=== PATIENT | male | born 1955 | race Caucasian/White ===

== ENCOUNTER 2022-02-13 15:18 | Inpatient (IN) ==
[2022-02-13 15:41] LABS: POC Calcium, Ionized 1.14 (1.16-1.32); POC Creatinine 1.1 (0.6-1.2); POC Potassium 3.9 (3.3-5.1)
[2022-02-13 16:06] LABS: Basophils # (Auto) 0.04 K/mcL (0.00-0.30); Basophils % (Auto) 0.3 % (0.0-2.0); Eosinophils # (Auto) 0.08 K/mcL (0.00-0.70); Eosinophils % (Auto) 0.6 % (0.0-7.0); Hematocrit 40.4 % (40.1-51.0); Hemoglobin 13.6 g/dL (13.7-17.5); Lymphocytes # (Auto) 0.64 K/mcL (1.50-4.80); Mean Cell Volume 90.8 fL (80.0-100.0); Mean Corpuscular HGB Conc 33.7 g/dL (31.0-36.0); Mean Platelet Volume 10.3 fL (8.8-12.5); Monocytes # (Auto) 1.01 K/mcL (0.10-0.90); Neutrophils % (Auto) 85.7 % (38.0-78.0); Platelet Count 168 K/mcL (140-440); RBC 4.45 M/mcL (4.63-6.08); Red Cell Distribution Width 12.9 % (11.5-14.5); WBC 12.7 K/mcL (4.5-11.0)
[2022-02-13] MEDS ORDERED: 0.9 % SODIUM CHLORIDE 1,000 ML IV ONE (16:22)
--- NOTE | 2022-02-13 16:24 | Emergency Department Note ---
HPI General Chief complaint: Weakness Stated complaint: weakness, frequent falls, left sided pain Time Seen by Provider: 02/13/22 17:01 Source: patient and EMS Mode of arrival: wheelchair Limitations: no limitations History of Present Illness HPI Narrative: Narrative: Patient is a 66-year-old male with no known medical history who presents to the emergency department due to fall and weakness. Patient reports that he fell on Sunday on his left side, and since then has had left-sided chest pain and left hip pain. He states that he is also had weakness since that time. He states that the weakness started after the fall, and not before the fall. He states that this morning he fell again, and was on the ground from 6:30 AM to 1 PM. He endorses continued weakness since that time. He denies hitting his headache, denies loss of consciousness, and denies pain in any other location aside from left side of chest and left hip. He denies any other concerns at this time. Related Data Home Medications Medication Instructions Recorded Confirmed aspirin 81 mg chewable tablet 81 mg PO QDAY 02/13/22 02/13/22 (Aspirin Childrens) atorvastatin 20 mg tablet 20 mg PO QDAY 02/13/22 02/13/22 diltiazem HCl 240 mg capsule,24 240 mg PO QAM 02/13/22 02/13/22 hr,extended release ferrous sulfate 325 mg (65 mg 325 mg PO QAM 02/13/22 02/13/22 iron) tablet furosemide 20 mg tablet 20 mg PO QAM 02/13/22 02/13/22 lisinopril 40 mg tablet 40 mg PO QDAY 02/13/22 02/13/22 metformin 500 mg tablet 500 mg PO BID 02/13/22 02/13/22 Previous Rx's Medication Instructions Recorded acetaminophen 325 mg tablet 650 mg PO Q6HP PRN Per Pain 02/16/22 Protocol/Fever > 101 #30 tabs potassium chloride 8 mEq 8 meq PO QDAY #30 caps 02/16/22 capsule,extended release sennosides 8.6 mg tablet (Senna 8.6 mg PO BID PRN constipation 30 02/16/22 Lax) days #60 tabs Allergies Allergy/AdvReac Type Severity Reaction Status Date / Time No Known Drug Allergies Allergy Verified 02/13/22 15:21 Review of Systems ROS ROS Narrative: Narrative: Constitutional: Reports weakness (Generalized); Denies fever Eyes: Denies eye pain or vision change ENT ED: Denies throat pain or rhinorrhea Cardiovascular: Reports chest pain; Denies dyspnea on exertion, orthopnea or edema Respiratory: Denies shortness of breath or cough Gastrointestinal: Denies abdominal pain, nausea, vomiting, diarrhea, constipation, hematochezia or melena Genitourinary: Denies dysuria or frequency Musculoskeletal: Reports joint pain (Left hip); Denies back pain or myalgia Integumentary: Denies rash or lesions Neurological: Reports weakness (Generalized); Denies headache, numbness, confusion, abnormal gait or dizziness Endocrine: Denies fatigue or polyuria PFSH Narrative Patient History Narrative: Narrative: Social History Smoking Status: Never smoker Exam Narrative Narrative: Narrative: General Limitations: no limitations General appearance: Present alert and in no apparent distress; Absent anxious, a ppears intoxicated or sleepy Head Head: Present atraumatic and normocephalic Eye Eye: Present EOMI; Absent scleral icterus or nystagmus ENT ENT: Present mucous membranes moist; Absent nasal congestion Neck Neck: Present full ROM; Absent tenderness Chest Chest: Present normal inspection, symmetric chest wall rise and tenderness (Left anterior ribs) Respiratory Respiratory: Present normal lung sounds bilaterally; Absent respiratory distress or accessory muscle use Cardiovascular Cardiovascular: Present regular rate, normal rhythm and normal heart sounds Adbominal Abdominal: Present soft and normal bowel sounds; Absent distention or tenderness Extremities Extremities: Present normal inspection, full ROM, tenderness (Left hip) and normal capillary refill Back Back: Present normal inspection and full ROM; Absent tenderness Neurological Neurological: Present alert and oriented X3 Psychiatric Psychiatric: Present normal affect and normal mood Skin Skin: Present warm (WNL), dry and normal color Course Vital Signs Vital signs: Vital Signs Temperature 98.4 F 02/13/22 15:18 Pulse Rate 81 02/13/22 15:18 Respiratory Rate 22 02/13/22 15:18 Blood Pressure 183/75 02/13/22 15:18 Pulse Oximetry (%) 97 02/13/22 15:18 Oxygen Delivery Method 02/13/22 15:18 Temperature 98.4 F 02/16/22 08:00 Pulse Rate 80 02/16/22 14:18 Respiratory Rate 18 02/16/22 08:45 Blood Pressure 182/63 02/16/22 14:18 Pulse Oximetry (%) 96 02/16/22 14:18 Oxygen Delivery Method 02/16/22 14:18 MDM MDM Narrative Medical decision making narrative: Narrative: Patient is a 66-year-old male who presents to the emergency department due to generalized weakness and chest pain. Differential diagnoses include rib fracture, rib contusion, soft tissue injury, hip fracture, electrolyte abnormality, rhabdomyolysis, and dehydration. Patient's labs are suggestive of possible dehydration. His labs otherwise are reassuring. COVID and influenza swab is negative. CT of the chest demonstrates left fourth through ninth rib fractures. Urinalysis is pending. I have spoken to Dr. Medina about patient who has agreed to see and evaluate patient for admission. Lab Data Result diagrams: 02/14/22 05:40 02/15/22 05:55 Labs: Lab Results 02/13/22 02/13/22 02/13/22 Range/Units 15:30 15:30 15:30 WBC 12.7 H (4.5-11.0) K/mcL RBC 4.45 L (4.63-6.08) M/mcL Hgb 13.6 L (13.7-17.5) g/dL Hct 40.4 (40.1-51.0) % POC Hct (41-55) MCV 90.8 (80.0-100.0) fL MCH 30.6 (26.0-34.0) pg MCHC 33.7 (31.0-36.0) g/dL RDW 12.9 (11.5-14.5) % Plt Count 168 (140-440) K/mcL MPV 10.3 (8.8-12.5) fL Immature Gran % (Auto) 0.4 (0.0-0.5) % Neut % (Auto) 85.7 H (38.0-78.0) % Lymph % (Auto) 5.0 L (15.5-49.0) % [place] % (Auto) 8.0 (1.0-12.0) % Eos % (Auto) 0.6 (0.0-7.0) % Baso % (Auto) 0.3 (0.0-2.0) % Lymph # (Auto) 0.64 L (1.50-4.80) K/mcL [place] # (Auto) 1.01 H (0.10-0.90) K/mcL Eos # (Auto) 0.08 (0.00-0.70) K/mcL Baso # (Auto) 0.04 (0.00-0.30) K/mcL Immature Gran # 0.05 (0.00-0.05) K/mcl Absolute Neutrophils 10.87 H (1.80-8.00) K/mcL POC Sodium (133-145) Sodium (133-145) mmol/L POC Potassium (3.3-5.1) Potassium (3.3-5.1) mmol/L POC Chloride (96-108) Chloride (96-108) mmol/L Carbon Dioxide (22-30) mmol/L POC Total CO2 (22-30) Anion Gap (8.0-16.0) POC BUN (6-20) BUN (8-23) mg/dL Creatinine (0.7-1.2) mg/dL POC Creatinine (0.6-1.2) GFR Calculation Glucose (70-105) mg/dL POC Glucose (70-105) Uric Acid (2.5-8.0) mg/dL Calcium (8.6-10.4) mg/dL POC WB Ioniz Calcium (1.16-1.32) Phosphorus (2.5-4.5) mg/dL Magnesium (1.6-2.5) mg/dL Total Bilirubin 1.0 (0.1-1.0) mg/dL Direct Bilirubin 0.3 H (<0.3) mg/dL GGT (8-61) U/L AST 37 (<40) U/L ALT 24 (<40) U/L Alkaline Phosphatase 82 (39-117) U/L Lactate Dehydrogenase (135-225) U/L Total Creatine Kinase 880 H (24-195) U/L Total Protein 7.1 (5.9-8.4) gm/dL Albumin 4.1 (3.2-5.2) gm/dL Globulin 3.0 (2.2-3.7) gm/dL Albumin/Globulin Ratio (1.0-2.3) Triglycerides (<150) mg/dL TSH (0.27-5.01) uIU/mL Urine Color Urine Appearance (Clear) Urine pH (5.0-9.0) Ur Specific [place] (1.000-1.035) Urine Protein (Negative) mg/dL Urine Glucose (UA) (Negative) mg/dL Urine Ketones (Negative) mg/dL Urine Occult Blood (Negative) afshin/mcL Urine Nitrate (Negative) Urine Bilirubin (Negative) mg/dL Urine Urobilinogen mg/dL Ur Leukocyte Esterase (Negative) /uL Urine RBC (0-3) /hpf Urine WBC (0-4) /hpf Ur Squamous Epith Cells (0-4) /hpf Urine Bacteria (0) /hpf Urine Mucus (None) /hpf Ur Culture Indicated? 02/13/22 02/13/22 02/13/22 Range/Units 15:37 17:45 22:00 WBC (4.5-11.0) K/mcL RBC (4.63-6.08) M/mcL Hgb (13.7-17.5) g/dL Hct (40.1-51.0) % POC Hct 41.0 (41-55) MCV (80.0-100.0) fL MCH (26.0-34.0) pg MCHC (31.0-36.0) g/dL RDW (11.5-14.5) % Plt Count (140-440) K/mcL MPV (8.8-12.5) fL Immature Gran % (Auto) (0.0-0.5) % Neut % (Auto) (38.0-78.0) % Lymph % (Auto) (15.5-49.0) % [place] % (Auto) (1.0-12.0) % Eos % (Auto) (0.0-7.0) % Baso % (Auto) (0.0-2.0) % Lymph # (Auto) (1.50-4.80) K/mcL [place] # (Auto) (0.10-0.90) K/mcL Eos # (Auto) (0.00-0.70) K/mcL Baso # (Auto) (0.00-0.30) K/mcL Immature Gran # (0.00-0.05) K/mcl Absolute Neutrophils (1.80-8.00) K/mcL POC Sodium 139 (133-145) Sodium (133-145) mmol/L POC Potassium 3.9 (3.3-5.1) Potassium (3.3-5.1) mmol/L POC Chloride 106 (96-108) Chloride (96-108) mmol/L Carbon Dioxide (22-30) mmol/L POC Total CO2 22.0 (22-30) Anion Gap (8.0-16.0) POC BUN 33 H (6-20) BUN (8-23) mg/dL Creatinine (0.7-1.2) mg/dL POC Creatinine 1.1 (0.6-1.2) GFR Calculation Glucose (70-105) mg/dL POC Glucose 142 H (70-105) Uric Acid (2.5-8.0) mg/dL Calcium (8.6-10.4) mg/dL POC WB Ioniz Calcium 1.14 L (1.16-1.32) Phosphorus (2.5-4.5) mg/dL Magnesium (1.6-2.5) mg/dL Total Bilirubin (0.1-1.0) mg/dL Direct Bilirubin (<0.3) mg/dL GGT (8-61) U/L AST (<40) U/L ALT (<40) U/L Alkaline Phosphatase (39-117) U/L Lactate Dehydrogenase (135-225) U/L Total Creatine Kinase (24-195) U/L Total Protein (5.9-8.4) gm/dL Albumin (3.2-5.2) gm/dL Globulin (2.2-3.7) gm/dL Albumin/Globulin Ratio (1.0-2.3) Triglycerides (<150) mg/dL TSH 1.93 (0.27-5.01) uIU/mL Urine Color Lt. yellow Urine Appearance Clear (Clear) Urine pH 6.0 (5.0-9.0) Ur Specific [place] 1.025 (1.000-1.035) Urine Protein 100 A (Negative) mg/dL Urine Glucose (UA) Negative (Negative) mg/dL Urine Ketones 40 A (Negative) mg/dL Urine Occult Blood Moderate A (Negative) afshin/mcL Urine Nitrate Negative (Negative) Urine Bilirubin Negative (Negative) mg/dL Urine Urobilinogen Normal mg/dL Ur Leukocyte Esterase Negative (Negative) /uL Urine RBC 3 (0-3) /hpf Urine WBC 1 (0-4) /hpf Ur Squamous Epith Cells 0 (0-4) /hpf Urine Bacteria None (0) /hpf Urine Mucus Few A (None) /hpf Ur Culture Indicated? No 02/14/22 02/14/22 02/14/22 Range/Units 05:40 05:40 05:40 WBC 11.0 (4.5-11.0) K/mcL RBC 3.93 L (4.63-6.08) M/mcL Hgb 12.2 L (13.7-17.5) g/dL Hct 36.3 L (40.1-51.0) % POC Hct (41-55) MCV 92.4 (80.0-100.0) fL MCH 31.0 (26.0-34.0) pg MCHC 33.6 (31.0-36.0) g/dL RDW 13.1 (11.5-14.5) % Plt Count 167 (140-440) K/mcL MPV 10.7 (8.8-12.5) fL Immature Gran % (Auto) 0.5 (0.0-0.5) % Neut % (Auto) 71.1 (38.0-78.0) % Lymph % (Auto) 9.9 L (15.5-49.0) % [place] % (Auto) 11.4 (1.0-12.0) % Eos % (Auto) 6.6 (0.0-7.0) % Baso % (Auto) 0.5 (0.0-2.0) % Lymph # (Auto) 1.09 L (1.50-4.80) K/mcL [place] # (Auto) 1.26 H (0.10-0.90) K/mcL Eos # (Auto) 0.73 H (0.00-0.70) K/mcL Baso # (Auto) 0.06 (0.00-0.30) K/mcL Immature Gran # 0.06 H (0.00-0.05) K/mcl Absolute Neutrophils 7.83 (1.80-8.00) K/mcL POC Sodium (133-145) Sodium 138 (133-145) mmol/L POC Potassium (3.3-5.1) Potassium 3.6 (3.3-5.1) mmol/L POC Chloride (96-108) Chloride 107 (96-108) mmol/L Carbon Dioxide 22 (22-30) mmol/L POC Total CO2 (22-30) Anion Gap 9.0 (8.0-16.0) POC BUN (6-20) BUN 29 H (8-23) mg/dL Creatinine 0.9 (0.7-1.2) mg/dL POC Creatinine (0.6-1.2) GFR Calculation 87 Glucose 117 H (70-105) mg/dL POC Glucose (70-105) Uric Acid 8.8 H (2.5-8.0) mg/dL Calcium 8.2 L (8.6-10.4) mg/dL POC WB Ioniz Calcium (1.16-1.32) Phosphorus 2.7 (2.5-4.5) mg/dL Magnesium 1.9 (1.6-2.5) mg/dL Total Bilirubin 0.6 (0.1-1.0) mg/dL Direct Bilirubin 0.2 (<0.3) mg/dL GGT 17 (8-61) U/L AST 23 (<40) U/L ALT 19 (<40) U/L Alkaline Phosphatase 64 (39-117) U/L Lactate Dehydrogenase 290 H (135-225) U/L Total Creatine Kinase 434 H (24-195) U/L Total Protein 5.8 L (5.9-8.4) gm/dL Albumin 3.2 (3.2-5.2) gm/dL Globulin 2.6 (2.2-3.7) gm/dL Albumin/Globulin Ratio 1.2 (1.0-2.3) Triglycerides 88 (<150) mg/dL TSH (0.27-5.01) uIU/mL Urine Color Urine Appearance (Clear) Urine pH (5.0-9.0) Ur Specific [place] (1.000-1.035) Urine Protein (Negative) mg/dL Urine Glucose (UA) (Negative) mg/dL Urine Ketones (Negative) mg/dL Urine Occult Blood (Negative) afshni/mcL Urine Nitrate (Negative) Urine Bilirubin (Negative) mg/dL Urine Urobilinogen mg/dL Ur Leukocyte Esterase (Negative) /uL Urine RBC (0-3) /hpf Urine WBC (0-4) /hpf Ur Squamous Epith Cells (0-4) /hpf Urine Bacteria (0) /hpf Urine Mucus (None) /hpf Ur Culture Indicated? 02/15/22 Range/Units 05:55 WBC (4.5-11.0) K/mcL RBC (4.63-6.08) M/mcL Hgb (13.7-17.5) g/dL Hct (40.1-51.0) % POC Hct (41-55) MCV (80.0-100.0) fL MCH (26.0-34.0) pg MCHC (31.0-36.0) g/dL RDW (11.5-14.5) % Plt Count (140-440) K/mcL MPV (8.8-12.5) fL Immature Gran % (Auto) (0.0-0.5) % Neut % (Auto) (38.0-78.0) % Lymph % (Auto) (15.5-49.0) % [place] % (Auto) (1.0-12.0) % Eos % (Auto) (0.0-7.0) % Baso % (Auto) (0.0-2.0) % Lymph # (Auto) (1.50-4.80) K/mcL [place] # (Auto) (0.10-0.90) K/mcL Eos # (Auto) (0.00-0.70) K/mcL Baso # (Auto) (0.00-0.30) K/mcL Immature Gran # (0.00-0.05) K/mcl Absolute Neutrophils (1.80-8.00) K/mcL POC Sodium (133-145) Sodium 139 (133-145) mmol/L POC Potassium (3.3-5.1) Potassium 3.9 (3.3-5.1) mmol/L POC Chloride (96-108) Chloride 106 (96-108) mmol/L Carbon Dioxide 21 L (22-30) mmol/L POC Total CO2 (22-30) Anion Gap 12.0 (8.0-16.0) POC BUN (6-20) BUN 29 H (8-23) mg/dL Creatinine 1.0 (0.7-1.2) mg/dL POC Creatinine (0.6-1.2) GFR Calculation 77 Glucose 149 H (70-105) mg/dL POC Glucose (70-105) Uric Acid (2.5-8.0) mg/dL Calcium 8.2 L (8.6-10.4) mg/dL POC WB Ioniz Calcium (1.16-1.32) Phosphorus (2.5-4.5) mg/dL Magnesium (1.6-2.5) mg/dL Total Bilirubin (0.1-1.0) mg/dL Direct Bilirubin (<0.3) mg/dL GGT (8-61) U/L AST (<40) U/L ALT (<40) U/L Alkaline Phosphatase (39-117) U/L Lactate Dehydrogenase (135-225) U/L Total Creatine Kinase (24-195) U/L Total Protein (5.9-8.4) gm/dL Albumin (3.2-5.2) gm/dL Globulin (2.2-3.7) gm/dL Albumin/Globulin Ratio (1.0-2.3) Triglycerides (<150) mg/dL TSH (0.27-5.01) uIU/mL Urine Color Urine Appearance (Clear) Urine pH (5.0-9.0) Ur Specific [place] (1.000-1.035) Urine Protein (Negative) mg/dL Urine Glucose (UA) (Negative) mg/dL Urine Ketones (Negative) mg/dL Urine Occult Blood (Negative) afshin/mcL Urine Nitrate (Negative) Urine Bilirubin (Negative) mg/dL Urine Urobilinogen mg/dL Ur Leukocyte Esterase (Negative) /uL Urine RBC (0-3) /hpf Urine WBC (0-4) /hpf Ur Squamous Epith Cells (0-4) /hpf Urine Bacteria (0) /hpf Urine Mucus (None) /hpf Ur Culture Indicated? ED POC Tests ED POC Tests: AJITH - Influenza A Negative AJITH - Influenza B Negative AJITH - SARS Antigen Negative Discharge Plan Patient/Caregiver Discharge Instructions Pt seen by PATTERN ASSEMBLER/PA only: No Activity: as per physical therapy Patient Disposition: Xfer As Inpt ([facility]) Condition: Good Prescriptions: New sennosides [Senna Lax] 8.6 mg Tablet 8.6 mg PO BID PRN (Reason: constipation) 30 Days Qty: 60 0RF acetaminophen 325 mg Tablet 650 mg PO Q6HP PRN (Reason: Per Pain Protocol/Fever > 101) Qty: 30 0RF potassium chloride 8 mEq capsule, extended release 8 meq PO QDAY Qty: 30 0RF Rx Instructions: Can be substituted with any generic KCl. Thank Continued metformin 500 mg Tablet 500 mg PO BID atorvastatin 20 mg Tablet 20 mg PO QDAY diltiazem HCl 240 mg Capsule,Extended Release 24 Hr 240 mg PO QAM ferrous sulfate 325 mg (65 mg iron) Tablet 325 mg PO QAM aspirin [Aspirin Childrens] 81 mg Tablet,Chewable 81 mg PO QDAY furosemide 20 mg Tablet 20 mg PO QAM lisinopril 40 mg Tablet 40 mg PO QDAY Other Ambulatory Orders: OT Discharge Order (Routine) Location: None Selected Ordered By: Erich aClix Physical Therapy at Discharge - General (Routine) Location: None Selected Ordered By: Erich Calix Discharge Date/Time: 02/13/22 21:10 Discharge Location: [facility]
[2022-02-13 17:05] LABS: Creatine Kinase 880 U/L (24-195)
--- NOTE | 2022-02-13 17:25 | XRay Report ---
CLINICAL INFORMATION: Trauma COMPARISON: None. FINDINGS: Sacroiliac and hip joints are normal in width and alignment without arthritic change. There is no fracture or osseous abnormality. There are multiple bowel loops in the medial soft tissues left upper thigh. Patient likely has a very large femoral hernia. IMPRESSION: No fracture. Suspect very left large femoral hernia. Interpreted and Authenticated by: Zion Esposito 02/19/22
--- NOTE | 2022-02-13 17:39 | Cat Scan Report ---
CLINICAL INFORMATION: Patient fell now with left-sided chest pain COMPARISON: None TECHNIQUE: 0.625 mm axial slices were obtained from the lung apices through the bases without intravenous contrast. 2.5 mm Sagittal, coronal and axial reformatted images were processed and reviewed at bone, lung and soft tissue windows. 7 mm axial MIP images were also reconstructed to optimize pulmonary nodule detection.The exam was performed using radiation dose optimization techniques including, but not limited to, automated exposure control, adjustment of the mA and/or kV according to patient size and use of iterative reconstruction technique. FINDINGS: Pulmonary parenchymal windows show atelectasis of the medial basilar segment left lower lobe with scattered atelectasis or fibrosis in the inferior right middle lobe, lingula and peripheral right lower lobe. Small left pleural effusion noted. No evidence of pneumothorax. Mediastinal windows show the heart is mildly enlarged with scattered calcific plaque in the coronary arteries. The noncontrast pulmonary arteries and thoracic aorta is normal diameter. No adenopathy or hemorrhage in the mediastinum, hilar or axillary region. Esophagus is normal. Acute mildly displaced fractures the lateral left fourth and fifth ribs with nondisplaced acute fractures lateral left sixth seventh eighth and ninth ribs. IMPRESSION: 1. Acute lateral left fourth through ninth rib fractures. 2. Small left pleural effusion 3. Segmental atelectasis medial basilar segment left lower lobe. Interpreted and Authenticated by: Zion Esposito 02/13/22
[2022-02-13 18:58] LABS: Appearance,Urine CLEAR (Clear); Bilirubin,Urine Negative (Negative); Color,Urine LT. YELLOW; Culture Indicated,Urine No; Glucose,Urine (UA) NEGATIVE (Negative); Ketones,Urine 40 mg/dL (Negative); Leukocyte Esterase,Urine NEGATIVE /uL (Negative); Mucus,Urine FEW /hpf; Nitrate,Urine NEGATIVE (Negative); Protein,Urine 100 mg/dL (Negative); Specific Gravity,Urine 1.025 (1.000-1.035); Urine Blood MODERATE ery/mcL (Negative); Urine RBC 3 /hpf (0-3); Urine Squamous Epithelial Cell 0 /hpf (0-4); Urine WBC 1 /hpf (0-4); Urobilinogen,Urine Normal
[2022-02-13] MEDS ORDERED: morphine 4 MG/ML VIAL IV ONE (19:02)
[2022-02-13] MEDS ORDERED: KETOROLAC 30 MG/ML VIAL IV ONE (19:02)
--- NOTE | 2022-02-13 20:02 | Internal Med History&Physical ---
HPI History of Present Illness Patient information: Note initiated : 02/13/22 at 7:53 pm Service Date, if different from initiated Date: [] Patient: Parish Aaron a 66 y/o M admitted on for weakness, frequent falls, left sided pain. Chief Complaint: [] History of present illness: Mr. Aaron is a 66 year old M Presents the ED with his friend for severe weakness. He also has left rib pain although not severe. Per the history from the patient and his friend: Patient tripped on tile in his home on Sunday falling onto his left side. And has been a bit weaker since then has not taken some of his medication to sound like. He was in his chair using urinal when he slipped out because he said its not a sturdy chair. He was too weak to get himself up and his friend who came over cannot get him up as well so they called EMS and took 6 guys to get him up. Per the friend he has a history of stroke and the patient has residual right leg weakness and also has some memory deficit. Also has a history of diabetes type 2 and hypertension blood pressure is elevated here in has not been on his medications for least a day. He had mild leukocytosis and elevated CPK 880. Volume depletion with a BUN of 33. Urinalysis with ketones. CT of the chest showed mildly displaced rib fractures on the left fourth and fifth and a nondisplaced sixth seven eight ninth. Patient lives at home alone. Sometimes uses a cane. Patient has some shortness of breath but denies cough no nausea vomiting. Review of Systems: Pertinent positives above. Denies headache/fever/chills/nausea/vomiting/abdominal pain/diarrhea. Remaining 10 point review of system reviewed negative PFSH PFSH Social History smoking status: Never smoker MEDS/ALLERGIES Home Medications and Allergies Allergies Allergy/AdvReac Type Severity Reaction Status Date / Time No Known Drug Allergies Allergy Verified 02/13/22 15:21 EXAM Constitutional Vitals: Temp Pulse Resp BP Pulse Ox O2 Del Method 98.4 F 82 22 181/86 97 02/13/22 15:18 02/13/22 19:47 02/13/22 15:18 02/13/22 19:47 02/13/22 19:47 02/13/22 15:18 Exam: General: Alert, Awake, No acute Distress, obese Eyes/N/T: EOMI, PERRL, dry MM Head/Neck: neck supple, normocephalic atraumatic CV: RRR, 1/6SM, normal s1/s2 Pulm: Clear b/l, no wheezing/rhonchi/rales, tender left side ribs Abd: soft, nontender, +BS x4 Ext: no clubbing/cyanosis/edema Neuro: Alert, no focal deficits, moves all extremities, CN 2-12 grossly intact, sensations intact b/l upper/lower Skin: warm/dry DATA Data Completed and Pending Labs: Labs from last 24 hours 02/13/22 02/13/22 02/13/22 17:45 15:37 15:30 WBC RBC Hgb Hct POC Hct 41.0 MCV MCH MCHC RDW Plt Count MPV Immature Gran % (Auto) Neut % (Auto) Lymph % (Auto) [place] % (Auto) Eos % (Auto) Baso % (Auto) Lymph # (Auto) [place] # (Auto) Eos # (Auto) Baso # (Auto) Immature Gran # Absolute Neutrophils POC Sodium 139 POC Potassium 3.9 POC Chloride 106 POC Total CO2 22.0 POC BUN 33 H POC Creatinine 1.1 POC Glucose 142 H POC WB Ioniz Calcium 1.14 L Total Bilirubin Pending Direct Bilirubin Pending AST Pending ALT Pending Alkaline Phosphatase Pending Total Creatine Kinase Total Protein Pending Albumin Pending Globulin Pending Urine Color Lt. yellow Urine Appearance Clear Urine pH 6.0 Ur Specific [place] 1.025 Urine Protein 100 A Urine Glucose (UA) Negative Urine Ketones 40 A Urine Occult Blood Moderate A Urine Nitrate Negative Urine Bilirubin Negative Urine Urobilinogen Normal Ur Leukocyte Esterase Negative Urine RBC 3 Urine WBC 1 Ur Squamous Epith Cells 0 Urine Bacteria None Urine Mucus Few A Ur Culture Indicated? No 02/13/22 02/13/22 15:30 15:30 WBC 12.7 H RBC 4.45 L Hgb 13.6 L Hct 40.4 POC Hct MCV 90.8 MCH 30.6 MCHC 33.7 RDW 12.9 Plt Count 168 MPV 10.3 Immature Gran % (Auto) 0.4 Neut % (Auto) 85.7 H Lymph % (Auto) 5.0 L [place] % (Auto) 8.0 Eos % (Auto) 0.6 Baso % (Auto) 0.3 Lymph # (Auto) 0.64 L [place] # (Auto) 1.01 H Eos # (Auto) 0.08 Baso # (Auto) 0.04 Immature Gran # 0.05 Absolute Neutrophils 10.87 H POC Sodium POC Potassium POC Chloride POC Total CO2 POC BUN POC Creatinine POC Glucose POC WB Ioniz Calcium Total Bilirubin Direct Bilirubin AST ALT Alkaline Phosphatase Total Creatine Kinase 880 H Total Protein Albumin Globulin Urine Color Urine Appearance Urine pH Ur Specific [place] Urine Protein Urine Glucose (UA) Urine Ketones Urine Occult Blood Urine Nitrate Urine Bilirubin Urine Urobilinogen Ur Leukocyte Esterase Urine RBC Urine WBC Ur Squamous Epith Cells Urine Bacteria Urine Mucus Ur Culture Indicated? A/P Narrative A/P Narrative: A: *Left 4-9th rib fx (4-5 mildly displaced): *Atelectasis: *Generalized weakness/deconditioning: *Volume depletion: *Elevated CPK: 2/2 fall and downtime *DM2: *h/o CVA with residual right leg weakness: *HTN: Elevated as he has missed his medications for today * P: -pain control, splinting technique -IS -IVF -f/u cbc/chem, renal fxn, uop -f/u cpk -o2 supp if needed -Continue home Dilt/acei, hold lasix for now -cont statin -ssi -Home Medication reconciliation -PT/OT -CM for placement needs -ppx: SCDs(hold chemical for now d/t trauma) Time Spent With Patient Time: Total time spent is greater than 50% in coordination of care (as documented) at patient's floor/unit and/or counseling patient: Total time spent with greater than 50% in coordination of care (as documented) at patient's floor/unit and/or counseling patient:: Greater than 70 minutes
[2022-02-13 20:04] LABS: Albumin 4.1 gm/dL (3.2-5.2); Bilirubin,Direct 0.3 mg/dL (<0.3)
[2022-02-13] MEDS ORDERED: ONDANSETRON 4 MG/2 ML VIAL IV PRN (21:35)
[2022-02-13] MEDS ORDERED: ACETAMINOPHEN 325 MG TABLET PO PRN (21:35)
[2022-02-13] MEDS ORDERED: LABETALOL 5 MG/ML ML IV PRN (21:35)
[2022-02-13] MEDS ORDERED: POTASSIUM CHLORIDE 20 MEQ TABLET PO PRN ×2 (21:35)
[2022-02-13] MEDS ORDERED: IPRATROPIUM/ALBUTEROL 3 ML AMPUL.NEB NEB PRN (21:35)
[2022-02-13] MEDS ORDERED: SENNOSIDES 1 TABLET PO PRN (21:35)
[2022-02-13] MEDS ORDERED: DEXTROSE 50% 50 ML VIAL IV PRN (21:35)
[2022-02-13] MEDS ORDERED: POLYETHYLENE GLYCOL 3350 17 GM PACKET PO PRN (21:35)
[2022-02-13] MEDS ORDERED: DEXTROSE 31 GM ORAL.SUSP PO PRN (21:35)
[2022-02-13] MEDS ORDERED: MAGNESIUM SULFATE 2 GM/50 ML BAG IV PRN (21:35)
[2022-02-13] MEDS ORDERED: POTASSIUM CHLORIDE 40 MEQ in DEXTROSE 5% IN WATER 500 ML IV PRN (21:35)
[2022-02-13] MEDS ORDERED: morphine 4 MG/ML VIAL IV PRN (21:35)
[2022-02-13] MEDS ORDERED: 0.9 % SODIUM CHLORIDE 1,500 ML IV ONE (21:35)
[2022-02-13] MEDS ORDERED: KETOROLAC 15 MG/ML VIAL IV PRN (21:40)
[2022-02-13] MEDS: INSULIN LISPRO 1 UNIT/0.01 ML UNIT SQ SCH (22:49)
[2022-02-13] MEDS: 0.9 % SODIUM CHLORIDE 10 ML SYRINGE IV SCH (22:50)
[2022-02-13] MEDS: DOCUSATE SODIUM 100 MG CAPSULE PO SCH (22:58)
[2022-02-13 23:04] LABS: Thyroid Stimulating Hormone 1.93 uIU/mL (0.27-5.01)
[2022-02-13] MEDS: hydrALAZINE 20 MG/ML VIAL IV PRN (23:48)
[2022-02-14] MEDS: HYDROcodone/APAP 5/325MG TABLET PO PRN ×2 (06:00→19:27)
[2022-02-14] MEDS: 0.9 % SODIUM CHLORIDE 10 ML SYRINGE IV SCH ×3 (06:02→21:14)
[2022-02-14 06:47] LABS: Basophils # (Auto) 0.06 K/mcL (0.00-0.30); Basophils % (Auto) 0.5 % (0.0-2.0); Eosinophils # (Auto) 0.73 K/mcL (0.00-0.70); Eosinophils % (Auto) 6.6 % (0.0-7.0); Hematocrit 36.3 % (40.1-51.0); Hemoglobin 12.2 g/dL (13.7-17.5); Lymphocytes # (Auto) 1.09 K/mcL (1.50-4.80); Lymphocytes % (Auto) 9.9 % (15.5-49.0); Mean Cell Volume 92.4 fL (80.0-100.0); Mean Corpuscular HGB Conc 33.6 g/dL (31.0-36.0); Mean Platelet Volume 10.7 fL (8.8-12.5); Monocytes # (Auto) 1.26 K/mcL (0.10-0.90); Monocytes % (Auto) 11.4 % (1.0-12.0); Neutrophils % (Auto) 71.1 % (38.0-78.0); Platelet Count 167 K/mcL (140-440); RBC 3.93 M/mcL (4.63-6.08); Red Cell Distribution Width 13.1 % (11.5-14.5)
[2022-02-14 07:14] LABS: ALT/SGPT 19 U/L (<40); AST/SGOT 23 U/L (<40); Albumin 3.2 gm/dL (3.2-5.2); Albumin/Globulin Ratio 1.2 (1.0-2.3); Alkaline Phosphatase 64 U/L (39-117); Bilirubin,Direct 0.2 mg/dL (<0.3); Bilirubin,Total 0.6 mg/dL (0.1-1.0); Blood Urea Nitrogen 29 mg/dL (8-23); Calcium 8.2 mg/dL (8.6-10.4); Carbon Dioxide 22 mmol/L (22-30); Chloride 107 mmol/L (96-108); Globulin 2.6 gm/dL (2.2-3.7); Glomerular Filtration Rate 87; Glucose 117 mg/dL (70-105); Lactate Dehydrogenase 290 U/L (135-225); Phosphorous 2.7 mg/dL (2.5-4.5); Triglycerides 88 mg/dL (<150); Uric Acid 8.8 mg/dL (2.5-8.0)
--- NOTE | 2022-02-14 07:22 | Internal Med Progress Note ---
SUBJECTIVE Subjective Patient information: Note initiated : 02/14/22 at 7:20 am Service Date, if different from initiated Date: [] Patient: Parish Aaron a 66 y/o M admitted on 02/13/22 for weakness, frequent falls, left sided pain. Chief Complaint: [] Interval history: History of present illness: Mr. Aaron is a 66 year old M Presents the ED with his friend for severe weakness. He also has left rib pain although not severe. Per the history from the patient and his friend: Patient tripped on tile in his home on Sunday falling onto his left side. And has been a bit weaker since then has not taken some of his medication to sound like. He was in his chair using urinal when he slipped out because he said its not a sturdy chair. He was too weak to get himself up and his friend who came over cannot get him up as well so they called EMS and took 6 guys to get him up. Per the friend he has a history of stroke and the patient has residual right leg weakness and also has some memory deficit. Also has a history of diabetes type 2 and hypertension blood pressure is elevated here in has not been on his medications for least a day. He had mild leukocytosis and elevated CPK 880. Volume depletion with a BUN of 33. Urinalysis with ketones. CT of the chest showed mildly displaced rib fractures on the left fourth and fifth and a nondisplaced sixth seven eight ninth. Patient lives at home alone. Sometimes uses a cane. Patient has some shortness of breath but denies cough no nausea vomiting. 02/14 Feeling a little better today. Occasional. No shortness of breath at rest. CPK improving. Left side chest pain over ribs present but not too bad Review of Systems: denies headache/fever/chills/nausea/vomiting/chest or abdominal pain/diarrhea. Otherwise see above. Constitutional Vitals: Vital Signs Temp Pulse Resp BP Pulse Ox O2 Del Method 98.3 F 74 22 164/69 97 02/14/22 03:42 02/14/22 03:42 02/14/22 03:42 02/14/22 03:42 02/14/22 03:42 02/14/22 03:42 Period Temp Pulse Resp BP Sys/Sterling Pulse Ox O2 Del Method O2 Flow Rate Last 24 Hr 98.0 F-99.0 F 70-85 18-24 164-189/62-90 96-100 Room Air-Room Air Intake and Output 02/13/22 02/14/22 02/14/22 19:59 03:59 11:59 Intake Total 1395 Output Total 75 250 Balance 1320 -250 Weight 111.13 kg 110.722 kg Intake & Output: Intake & Output 02/13/22 02/14/22 02/14/22 19:59 03:59 11:59 Intake Total 1395 Output Total 75 250 Balance 1320 -250 Weight 111.13 kg 110.722 kg Intake: IV 1000 Sodium Chloride 0.9% 1,000 ml @ 1000 Wide Open IV BOLUS ONE Rx#: [id number] Oral 395 Output: Void Amount 75 250 Other: Meal Nourishment/Supplement Percent of Meal Consumed 100% Nourishment/Supplement name eggsalad sandwich, peaches, Urine Appearance Clear Clear Urine Color Yellow Bright Yellow Exam: General: Alert, Awake, No acute Distress, obese Eyes/N/T: EOMI, Head/Neck: neck supple, CV: RRR, 1/6SM, normal s1/s2 Pulm: Clear b/l, no wheezing/rhonchi/rales, tender left side ribs Abd: soft, nontender, +BS x4 Ext: no clubbing/cyanosis/edema Neuro: Alert, no focal deficits, moves all extremities, Skin: warm/dry OBJ DATA Labs CBC & Chem 7: 02/14/22 05:40 02/14/22 05:40 Labs: Abnormal Lab Results 02/14/22 02/14/22 02/14/22 05:40 05:40 05:40 WBC RBC 3.93 L Hgb 12.2 L Hct 36.3 L Neut % (Auto) Lymph % (Auto) 9.9 L Lymph # (Auto) 1.09 L [place] # (Auto) 1.26 H Eos # (Auto) 0.73 H Immature Gran # 0.06 H Absolute Neutrophils POC BUN BUN 29 H Glucose 117 H POC Glucose Uric Acid 8.8 H Calcium 8.2 L POC WB Ioniz Calcium Direct Bilirubin Lactate Dehydrogenase 290 H Total Creatine Kinase 434 H Total Protein 5.8 L Urine Protein Urine Ketones Urine Occult Blood Urine Mucus 02/13/22 02/13/22 02/13/22 17:45 15:37 15:30 WBC RBC Hgb Hct Neut % (Auto) Lymph % (Auto) Lymph # (Auto) [place] # (Auto) Eos # (Auto) Immature Gran # Absolute Neutrophils POC BUN 33 H BUN Glucose POC Glucose 142 H Uric Acid Calcium POC WB Ioniz Calcium 1.14 L Direct Bilirubin 0.3 H Lactate Dehydrogenase Total Creatine Kinase Total Protein Urine Protein 100 A Urine Ketones 40 A Urine Occult Blood Moderate A Urine Mucus Few A 02/13/22 02/13/22 15:30 15:30 WBC 12.7 H RBC 4.45 L Hgb 13.6 L Hct Neut % (Auto) 85.7 H Lymph % (Auto) 5.0 L Lymph # (Auto) 0.64 L [place] # (Auto) 1.01 H Eos # (Auto) Immature Gran # Absolute Neutrophils 10.87 H POC BUN BUN Glucose POC Glucose Uric Acid Calcium POC WB Ioniz Calcium Direct Bilirubin Lactate Dehydrogenase Total Creatine Kinase 880 H Total Protein Urine Protein Urine Ketones Urine Occult Blood Urine Mucus Meds: Medications Acetaminophen (Acetaminophen 325 Mg Tablet) 650 mg PO Q6HP PRN; Protocol PRN Reason: Per Pain Protocol/Fever > 101 Last Admin: 02/13/22 22:56 Dose: 650 mg Hydrocodone Bitart/Acetaminophen (Hydrocodone/Apap 5/325mg Tablet) 1 tab PO Q4HP PRN PRN Reason: PAIN LEVEL 3-6 Last Admin: 02/14/22 06:00 Dose: 1 tab Albuterol/Ipratropium (Ipratropium/Albuterol 3 Ml Ampul.Neb) 3 ml NEB Q4HP PRN PRN Reason: Shortness Of Breath Dextrose (Dextrose 50% 50 Ml Vial) 0 ml IV UD PRN PRN Reason: Per Sliding Scale Diagnostic Test (Pha) (Accu-Chek 1 Each Strip) 1 each FS ACHS JACQUELINE Last Admin: 02/13/22 22:49 Dose: 1 each Docusate Sodium (Docusate Sodium 100 Mg Capsule) 100 mg PO BID JACQUELINE Last Admin: 02/13/22 22:58 Dose: 100 mg Glucose (Dextrose 31 Gm Oral.Susp) 15 gm PO PRN PRN PRN Reason: Hypoglycemia Hydralazine HCl (Hydralazine 20 Mg/Ml Vial) 0 mg IV Q2HP PRN PRN Reason: Hypertension Last Admin: 02/13/22 23:48 Dose: 20 mg Potassium Chloride 40 meq/ (Dextrose) 520 mls @ 130 mls/hr IV UD PRN PRN Reason: Potassium < 3 Magnesium Sulfate (Magnesium Sulfate) 2 gm in 50 mls @ 50 mls/hr IV UD PRN PRN Reason: Magnesium </= 1.6 Sodium Chloride (Sodium Chloride 0.9%) 1,500 mls @ 125 mls/hr IV .Q12H ONE Stop: 02/14/22 09:34 Last Admin: 02/13/22 22:50 Dose: 125 mls/hr Insulin Human Lispro (Insulin Lispro 1 Unit/0.01 Ml Unit) 0 unit SQ [facility]; Protocol Last Admin: 02/13/22 22:49 Dose: Not Given Ketorolac Tromethamine (Ketorolac 15 Mg/Ml Vial) 15 mg IV Q6HP PRN PRN Reason: Pain Stop: 02/15/22 20:00 Labetalol HCl (Labetalol 5 Mg/Ml Ml) 0 mg IV Q2HP PRN PRN Reason: Hypertension Morphine Sulfate (Morphine 4 Mg/Ml Vial) 0 mg IV Q3HP PRN PRN Reason: Pain Ondansetron HCl (Ondansetron 4 Mg/2 Ml Vial) 4 mg IV Q4HP PRN PRN Reason: Nausea And Vomiting Polyethylene Glycol (Polyethylene Glycol 3350 17 Gm Packet) 17 gm PO DAILYP PRN PRN Reason: Constipation Potassium Chloride (Potassium Chloride 20 Meq Tablet) 40 meq PO UD PRN PRN Reason: Potssium is 3-3.5 Potassium Chloride (Potassium Chloride 20 Meq Tablet) 40 meq PO UD PRN PRN Reason: Potassium < 3 Senna (Sennosides 1 Tablet) 2 tab PO DAILYP PRN PRN Reason: Constipation Sodium Chloride (0.9 % Sodium Chloride 10 Ml Syringe) 10 ml IV Q8 JACQUELINE Last Admin: 02/14/22 06:02 Dose: 10 ml A/P Narrative A/P Narrative: A: *Left 4-9th rib fx (4-5 mildly displaced): -on room air *Atelectasis: *Generalized weakness/deconditioning: *Volume depletion: improving *Elevated CPK: 2/2 fall and downtime, improving *DM2: *h/o CVA with residual right leg weakness: *HTN: Elevated as he has missed his medications for today *Obesity: BMI 33 P: -pain control, splinting technique -IS -IVF -f/u cbc/chem, renal fxn, uop -f/u cpk -o2 supp if needed -Continue home Dilt/acei, hold lasix for now -cont statin -ssi -PT/OT -CM for placement needs -ppx: SCDs(hold chemical for now d/t trauma) Time Spent With Patient Time: Total time spent is greater than 50% in coordination of care (as documented) at patient's floor/unit and/or counseling patient: Total time spent with greater than 50% in coordination of care (as documented) at patient's floor/unit and/or counseling patient:: 35 - 50 minutes
[2022-02-14] MEDS: INSULIN LISPRO 1 UNIT/0.01 ML UNIT SQ SCH ×4 (07:25→21:13)
[2022-02-14] MEDS: ATORVASTATIN 20 MG TABLET PO SCH (08:54)
[2022-02-14] MEDS: LISINOPRIL 20 MG TABLET PO SCH (08:54)
[2022-02-14] MEDS: DOCUSATE SODIUM 100 MG CAPSULE PO SCH ×2 (08:54→21:14)
[2022-02-14] MEDS: DILTIAZEM 240 MG CAP.XL.24H PO SCH (08:54)
[2022-02-14] MEDS: FUROSEMIDE 20 MG TABLET PO SCH (08:55)
[2022-02-14] MEDS: hydrALAZINE 20 MG/ML VIAL IV PRN (16:30)
[2022-02-15] MEDS: HYDROcodone/APAP 5/325MG TABLET PO PRN ×2 (01:12→11:34)
[2022-02-15] MEDS: 0.9 % SODIUM CHLORIDE 10 ML SYRINGE IV SCH ×3 (05:04→20:44)
[2022-02-15] MEDS: INSULIN LISPRO 1 UNIT/0.01 ML UNIT SQ SCH ×4 (06:57→20:44)
[2022-02-15 07:28] LABS: Blood Urea Nitrogen 29 mg/dL (8-23); Calcium 8.2 mg/dL (8.6-10.4); Carbon Dioxide 21 mmol/L (22-30); Chloride 106 mmol/L (96-108); Glomerular Filtration Rate 77; Glucose 149 mg/dL (70-105)
[2022-02-15] MEDS: DILTIAZEM 240 MG CAP.XL.24H PO SCH (08:36)
[2022-02-15] MEDS: DOCUSATE SODIUM 100 MG CAPSULE PO SCH ×2 (08:37→20:44)
[2022-02-15] MEDS: ATORVASTATIN 20 MG TABLET PO SCH (08:37)
[2022-02-15] MEDS: LISINOPRIL 20 MG TABLET PO SCH (08:37)
[2022-02-15] MEDS: FUROSEMIDE 20 MG TABLET PO SCH (08:37)
--- NOTE | 2022-02-15 10:55 | Cat Scan Report ---
CLINICAL INFORMATION: Left hip pain following trauma COMPARISON: Plain films 02/13/2022 TECHNIQUE: 0.625 mm helical slices were obtained from the mid L4 through the subtrochanteric regions. Following reconstruction, 2.5 mm sagittal, coronal and axial reformations were processed. The exam was reviewed in bone and soft tissue windows. The exam was performed using radiation dose optimization techniques including, but not limited to, automated exposure control, adjustment of mA and/or kV according to patient size and use of iterative reconstruction technique. FINDINGS: Moderately comminuted nondisplaced fracture of the left acetabular roof with extension medially to the left superior pubic ramus root. There is also coronal extension throughout the left ilium. No other osseous abnormalities. Both hips show mild degeneration. SI joints are normal. A massive left inguinal hernia spans 31 cm and extends into the left scrotum. It contains a segment of nonincarcerated appearing sigmoid colon and mesenteric fat. Small amount of fluid seen in the distal hernia sac. The remaining small and large bowel are normal. There is no free air, free fluid or adenopathy. Prostate, seminal vesicles and urinary bladder normal. Small periumbilical hernia contains only mesenteric fat. IMPRESSION: 1. Moderately comminuted nondisplaced fracture through the left acetabular roof with medial extension to the root of the superior pubic ramus and coronal extension throughout the left iliac bone. 2. Massive (31 cm) left inguinal hernia extending into the scrotum. It contains a segment of nonincarcerated appearing sigmoid colon and a large amount of mesenteric fat. Mild edema noted Interpreted and Authenticated by: Zion Esposito 02/15/22
--- NOTE | 2022-02-15 11:50 | Internal Med Progress Note ---
SUBJECTIVE Subjective Patient information: Note initiated : 02/15/22 at 11:39 am Service Date, if different from initiated Date: Patient: Parish Aaron 66 y/o M admitted on 02/13/22 for weakness, frequent falls, left sided pain. Chief Complaint: Left Hip pain. Interval history: Pt still complaining of left hip pain with ambulation. Currently laying in the bed comfortable. He denies chest pain, shortness of breath, nausea, vomiting Pertinent ROS: Except as documented all systems reviewed and negative Constitutional Vitals: Vital Signs Temp Pulse Resp BP Pulse Ox O2 Del Method 98.4 F 72 19 156/77 95 02/15/22 07:17 02/15/22 08:00 02/15/22 08:00 02/15/22 07:51 02/15/22 08:00 02/15/22 08:00 Period Temp Pulse Resp BP Sys/Sterling Pulse Ox O2 Del Method O2 Flow Rate Last 24 Hr 97.8 F-98.6 F 61-92 14-20 140-168/61-125 95-99 Room Air-Room Air Intake and Output 02/14/22 02/15/22 02/15/22 19:59 03:59 11:59 Intake Total 240 900 120 Output Total 300 200 Balance -60 700 120 Weight 114.033 kg Intake & Output: Intake & Output 02/14/22 02/15/22 02/15/22 19:59 03:59 11:59 Intake Total 240 900 120 Output Total 300 200 Balance -60 700 120 Weight 114.033 kg Intake: Oral 240 900 120 Output: Void Amount 300 200 Other: Meal Breakfast Percent of Meal Consumed 100% Urine Appearance Clear Clear Urine Color Yellow Yellow # Voids 1 General appearance: cooperative and morbidly obese (BMI 34) Exam: General: Obese male, awake alert oriented x3. No apparent distress HEENT: PERRLA, moist mucous membrane. Anicteric sclera Lungs: Clear to auscultation bilaterally. No crackles rhonchi or rales. Cardiovascular: Regular rate and rhythm. S1 + S2, no murmur gallop rub. No peripheral edema. No JVD GI: Abdomen soft, nontender, positive bowel sounds. No hepatosplenomegaly. No rebound tenderness. No CVA tenderness : Massive left inguinal hernia, nontender, nonreducible. Musculoskeletal: Painful range of motion on the left hip. [employer]: Awake alert oriented x3. Cranial nerves II through XII 12 grossly intact. Psychiatric: Normal mood and affect OBJ DATA Labs CBC & Chem 7: 02/14/22 05:40 02/15/22 05:55 Labs: Abnormal Lab Results 02/15/22 02/14/22 02/14/22 05:55 05:40 05:40 WBC RBC 3.93 L Hgb 12.2 L Hct 36.3 L Neut % (Auto) Lymph % (Auto) 9.9 L Lymph # (Auto) 1.09 L Brown # (Auto) 1.26 H Eos # (Auto) 0.73 H Immature Gran # 0.06 H Absolute Neutrophils Carbon Dioxide 21 L POC BUN BUN 29 H 29 H Glucose 149 H 117 H POC Glucose Uric Acid 8.8 H Calcium 8.2 L 8.2 L POC WB Ioniz Calcium Direct Bilirubin Lactate Dehydrogenase 290 H Total Creatine Kinase Total Protein 5.8 L Urine Protein Urine Ketones Urine Occult Blood Urine Mucus 02/14/22 02/13/22 02/13/22 05:40 17:45 15:37 WBC RBC Hgb Hct Neut % (Auto) Lymph % (Auto) Lymph # (Auto) [place] # (Auto) Eos # (Auto) Immature Gran # Absolute Neutrophils Carbon Dioxide POC BUN 33 H BUN Glucose POC Glucose 142 H Uric Acid Calcium POC WB Ioniz Calcium 1.14 L Direct Bilirubin Lactate Dehydrogenase Total Creatine Kinase 434 H Total Protein Urine Protein 100 A Urine Ketones 40 A Urine Occult Blood Moderate A Urine Mucus Few A 02/13/22 02/13/22 02/13/22 15:30 15:30 15:30 WBC 12.7 H RBC 4.45 L Hgb 13.6 L Hct Neut % (Auto) 85.7 H Lymph % (Auto) 5.0 L Lymph # (Auto) 0.64 L Brown # (Auto) 1.01 H Eos # (Auto) Immature Gran # Absolute Neutrophils 10.87 H Carbon Dioxide POC BUN BUN Glucose POC Glucose Uric Acid Calcium POC WB Ioniz Calcium Direct Bilirubin 0.3 H Lactate Dehydrogenase Total Creatine Kinase 880 H Total Protein Urine Protein Urine Ketones Urine Occult Blood Urine Mucus Meds: Medications Acetaminophen (Acetaminophen 325 Mg Tablet) 650 mg PO Q6HP PRN; Protocol PRN Reason: Per Pain Protocol/Fever > 101 Last Admin: 12/19/22 22:56 Dose: 650 mg Hydrocodone Bitart/Acetaminophen (Hydrocodone/Apap 5/325mg Tablet) 1 tab PO Q4HP PRN PRN Reason: PAIN LEVEL 3-6 Last Admin: 02/15/22 11:34 Dose: 1 tab Albuterol/Ipratropium (Ipratropium/Albuterol 3 Ml Ampul.Neb) 3 ml NEB Q4HP PRN PRN Reason: Shortness Of Breath Atorvastatin Calcium (Atorvastatin 20 Mg Tablet) 20 mg PO QDAY [facility] Last Admin: 02/15/22 08:37 Dose: 20 mg Dextrose (Dextrose 50% 50 Ml Vial) 0 ml IV UD PRN PRN Reason: Per Sliding Scale Diagnostic Test (Pha) (Accu-Chek 1 Each Strip) 1 each FS ACHS [facility] Last Admin: 02/15/22 11:34 Dose: 1 each Diltiazem HCl (Diltiazem 240 Mg Cap.Xl.24h) 240 mg PO QAM [facility] Last Admin: 02/15/22 08:36 Dose: 240 mg Docusate Sodium (Docusate Sodium 100 Mg Capsule) 100 mg PO BID [facility] Last Admin: 02/15/22 08:37 Dose: 100 mg Furosemide (Furosemide 20 Mg Tablet) 20 mg PO QAM [facility] Last Admin: 02/15/22 08:37 Dose: 20 mg Glucose (Dextrose 31 Gm Oral.Susp) 15 gm PO PRN PRN PRN Reason: Hypoglycemia Hydralazine HCl (Hydralazine 20 Mg/Ml Vial) 0 mg IV Q2HP PRN PRN Reason: Hypertension Last Admin: 02/14/22 16:30 Dose: 20 mg Potassium Chloride 40 meq/ (Dextrose) 520 mls @ 130 mls/hr IV UD PRN PRN Reason: Potassium < 3 Magnesium Sulfate (Magnesium Sulfate) 2 gm in 50 mls @ 50 mls/hr IV UD PRN PRN Reason: Magnesium </= 1.6 Insulin Human Lispro (Insulin Lispro 1 Unit/0.01 Ml Unit) 0 unit SQ [facility]; Protocol Last Admin: 02/15/22 11:34 Dose: 8 units Ketorolac Tromethamine (Ketorolac 15 Mg/Ml Vial) 15 mg IV Q6HP PRN PRN Reason: Pain Stop: 02/15/22 20:00 Labetalol HCl (Labetalol 5 Mg/Ml Ml) 0 mg IV Q2HP PRN PRN Reason: Hypertension Lisinopril (Lisinopril 20 Mg Tablet) 40 mg PO QDAY [facility] Last Admin: 02/15/22 08:37 Dose: 40 mg Morphine Sulfate (Morphine 4 Mg/Ml Vial) 0 mg IV Q3HP PRN PRN Reason: Pain Ondansetron HCl (Ondansetron 4 Mg/2 Ml Vial) 4 mg IV Q4HP PRN PRN Reason: Nausea And Vomiting Polyethylene Glycol (Polyethylene Glycol 3350 17 Gm Packet) 17 gm PO DAILYP PRN PRN Reason: Constipation Potassium Chloride (Potassium Chloride 20 Meq Tablet) 40 meq PO UD PRN PRN Reason: Potssium is 3-3.5 Potassium Chloride (Potassium Chloride 20 Meq Tablet) 40 meq PO UD PRN PRN Reason: Potassium < 3 Senna (Sennosides 1 Tablet) 2 tab PO DAILYP PRN PRN Reason: Constipation Last Admin: 02/14/22 21:14 Dose: 2 tab Sodium Chloride (0.9 % Sodium Chloride 10 Ml Syringe) 10 ml IV Q8 [facility] Last Admin: 02/15/22 05:04 Dose: 10 ml Impressions Impression: CT Hip : A/P Sepsis Sepsis Identified: No Narrative A/P Narrative: 66 years old male resident of assisted living facility admitted with frequent falls and weakness call A: #Acute traumatic left acetabular fracture: -CT pelvic moderately comminuted nondisplaced fracture through the left acetabular roof with medial extension to the root of the superior pubic ramus and coronal extension throughout the left iliac bone. - Pain control. NWB. Consulted Dr.Jelinek Slade. # Massive left inguinal hernia with no incarceration - CT Pelvic. Massive (31 cm) left inguinal hernia extending into the scrotum contains a segment of nonincarcerated appearing sigmoid colon and a large amount of mesenteric fat. Mild edema noted # Acute traumatic left 4-9th rib fx (4-5 mildly displaced): - Now on room air -Continue pain control, incentive spirometer - Trauma cleared him. # Generalized weakness/deconditioning: # Volume depletion: improving # Elevated CPK: 2/2 fall and downtime, improving # DM2: Continue home metformin and sliding scale insulin # H/o CVA with residual right leg weakness: -Continue home aspirin/statin/lisinopril #HTN: -Continue home diltiazem, lisinopril. Continue to hold Lasix for now #Obesity: BMI 33 DVT -ppx: SCDs. Start Lovenox 40mg daily. Time Spent With Patient Time: Total time spent is greater than 50% in coordination of care (as documented) at patient's floor/unit and/or counseling patient: Total time spent with greater than 50% in coordination of care (as documented) at patient's floor/unit and/or counseling patient:: 35 - 50 minutes Critical Care Time: No
[2022-02-15] MEDS: hydrALAZINE 20 MG/ML VIAL IV PRN ×2 (13:27→18:01)
--- NOTE | 2022-02-15 17:24 | Orthopedic History & Physical ---
HPI History of Present Illness Patient information: Note initiated : 02/15/22 at 5:23 pm Service Date, if different from initiated Date: [] Patient: Parish Aaron 66 y/o M admitted on 02/15/22 for weakness, frequent falls, left sided pain. Chief Complaint: [Left hip pain status post fall] Chief complaint: Left hip pain s/p fall History of present illness: Patient is a 66 YO male with hx of DM 2, HTN and stroke who presented to the [facility] after he tripped on tile in his home on Sunday falling onto his left side. He was in his chair using a can as a urinal when he slipped out and fell. He was too weak to get up and EMS was summoned for assistance. Imaging obtained at the ED revealed a non-displaced acetabular fracture and rib fractures of 4-9. Dr Manriquez orthopedic surgeon was consulted for treatment options. Review of Systems All systems: reviewed and no additional remarkable complaints except as stated PFSH PFSH Social History smoking status: Never smoker MEDS/ALLERGIES Home Medications and Allergies Home Medications Medication Instructions Recorded Confirmed Type aspirin 81 mg chewable tablet 81 mg PO QDAY 02/13/22 02/13/22 History (Aspirin Children[facility]) atorvastatin 20 mg tablet 20 mg PO QDAY 02/13/22 02/13/22 History diltiazem HCl 240 mg capsule,24 240 mg PO QAM 02/13/22 02/13/22 History hr,extended release ferrous sulfate 325 mg (65 mg 325 mg PO QAM 02/13/22 02/13/22 History iron) tablet furosemide 20 mg tablet 20 mg PO QAM 02/13/22 02/13/22 History lisinopril 40 mg tablet 40 mg PO QDAY 02/13/22 02/13/22 History metformin 500 mg tablet 500 mg PO BID 02/13/22 02/13/22 History Allergies Allergy/AdvReac Type Severity Reaction Status Date / Time No Known Drug Allergies Allergy Verified 02/13/22 15:21 Physical Examination Narrative Narrative: Narrative: Results Labs Result Diagrams: 02/14/22 05:40 02/15/22 05:55 Labs: Abnormal lab results 02/15/22 Range/Units 05:55 Carbon Dioxide 21 L (22-30) mmol/L BUN 29 H (8-23) mg/dL Glucose 149 H (70-105) mg/dL Calcium 8.2 L (8.6-10.4) mg/dL H & H 02/13/22 02/14/22 Range/Units 15:30 05:40 Hgb 13.6 L 12.2 L (13.7-17.5) g/dL Hct 40.4 36.3 L (40.1-51.0) % All other labs normal. A/P Narrative A/P Narrative: On exam patient is seated in bed in no acute distress, eating dinner. He is alert and oriented x3, pupils are PERRL with intact ocular motion, mucous membranes are moist, head neck are nontender to palpation, bilateral upper extremities are warm, well-perfused, neurovascularly intact., At the left side chest there is some tenderness to palpation patient is able to speak in complete sentences and breathing is unlabored, heart is normal rate and rhythm. Abdomen is protuberant, obese and nontender to palpation. At the left hip and pelvis area there is tenderness to palpation posteriorly with moderate ecchymosis posteriorly. There is normal range of motion in the hip joint with moderate tenderness at extreme flexion and with axial loading. Plan of Treatment: As the left hip acetabular fracture evidenced on CT scan is nondisplaced we will have the patient be nonweightbearing at this time on the left lower extremity. We will plan for a period of 4 weeks nonweightbearing. No surgical intervention is warranted at this time. Plan is for expected discharge to rehab facility in 1 to 2 days with follow-up at [facility] in 10 to 14 days. Time Spent With Patient Time: Total time spent is greater than 50% in coordination of care (as documented) at patient's floor/unit and/or counseling patient:
[2022-02-15] MEDS: metFORMIN 500 MG TABLET PO SCH (20:44)
[2022-02-16] MEDS: HYDROcodone/APAP 5/325MG TABLET PO PRN ×2 (03:22→14:23)
[2022-02-16] MEDS: 0.9 % SODIUM CHLORIDE 10 ML SYRINGE IV SCH ×2 (04:39→14:24)
[2022-02-16] MEDS: DOCUSATE SODIUM 100 MG CAPSULE PO SCH (08:42)
[2022-02-16] MEDS: DILTIAZEM 240 MG CAP.XL.24H PO SCH (08:42)
[2022-02-16] MEDS: LISINOPRIL 20 MG TABLET PO SCH (08:43)
[2022-02-16] MEDS: metFORMIN 500 MG TABLET PO SCH (08:43)
[2022-02-16] MEDS: ATORVASTATIN 20 MG TABLET PO SCH (08:43)
[2022-02-16] MEDS: FUROSEMIDE 20 MG TABLET PO SCH (08:43)
[2022-02-16] MEDS: INSULIN LISPRO 1 UNIT/0.01 ML UNIT SQ SCH ×2 (08:46→11:46)
--- NOTE | 2022-02-16 13:11 | Discharge Summary ---
Discharge Provider Provider IMPORTANT FOLLOW-UP INFORMATION FOR PCP: Patient information: Note initiated : 02/16/22 at 1:08 pm Service Date, if different from initiated Date: Patient: Parish Aaron 66 y/o M admitted on 02/15/22 for weakness, frequent falls, left sided pain. Date of admission: 02/15/22 12:00 Discharge date: 02/16/22 Primary care physician: Janelle Anderson Admitting clinician: Yayo Medina Attending physician on admission: Yayo Medina Consults: 02/13/22 Consult to Physician [CONS] Stat Comment: Consulting Provider: Yayo Medina Reason For Exam: Physician to Consult Consult to Physician [CONS] Stat Comment: Consulting Provider: Jerry Grimes Reason For Exam: Physician to Consult 02/14/22 16:39 Consult to Physician [CONS] Routine Comment: Consulting Provider: [facility] Reason For Exam: Physician to Consult 02/15/22 07:54 Consult to Physician [CONS] Routine Comment: isabelle/raghav Consulting Provider: Neeraj Gale Reason For Exam: Physician to Consult Attending physician on discharge: Erich Cailx Discharging clinician: Erich Calix COURSE Hospital Course Hospital course: 66 years old male resident of assisted living facility admitted with frequent falls and weakness. His hospital course is as following #Acute traumatic left acetabular fracture: -CT pelvic moderately comminuted nondisplaced fracture through the left acetabular roof with medial extension to the root of the superior pubic ramus and coronal extension throughout the left iliac bone. - Consulted Dr.Jelinek Slade who recommended As the left hip acetabular fracture evidenced on CT scan is nondisplaced we will have the patient be nonweightbearing at this time on the left lower extremity.We will plan for a period of 4 weeks nonweightbearing. No surgical intervention is warranted at this time.Discharge to rehab facility with follow-up at [facility] in 10 to 14 days # Massive left inguinal hernia with no incarceration - CT Pelvic. Massive (31 cm) left inguinal hernia extending into the scrotum contains a segment of nonincarcerated appearing sigmoid colon and a large amount of mesenteric fat. Mild edema noted # Acute traumatic left 4-9th rib fx (4-5 mildly displaced): - Now on room air -Continue pain control, incentive spirometer - Trauma cleared him. -Outpatient follow-up with PCP in 1 week # Generalized weakness/deconditioning. Much improved. Continue PT/OT. Nonweightbearing on left lower extremity # Volume depletion: Improved with IV fluid. Resume Lasix # Elevated CPK: 2/2 fall and downtime, improved # DM2: Continue home metformin # H/o CVA with residual right leg weakness: -Continue home aspirin/statin/lisinopril #HTN: -Continue home diltiazem, lisinopril. Resume home Lasix #Obesity: BMI 33 Disposition: Patient discharged back to SNF Condition on discharge: Hemodynamically stable. Tolerated p.o. Discharge activity: Nonweightbearing left lower extremity for 4 weeks Discharge diet: Diabetic diet Discharge medication: See med reconciliation form Discharge follow-up: Primary care physician within 1 week for post hospital follow-up. Follow-up with [facility] in 1-2 weeks Discharge diagnosis: Fall with Rib Fx, Left Hip Fx (Nonn surgical) Time Spent with Patient Time attestation: Total time spent providing and/or coordinating discharge services: Time spent: Greater than 30 minutes Specific discharge activities: 37 minuets EXAM Constitutional Vitals: Temp Pulse Resp BP Pulse Ox O2 Del Method 98.4 F 71 18 163/76 98 02/16/22 08:00 02/16/22 08:00 02/16/22 08:45 02/16/22 08:00 02/16/22 08:45 02/16/22 08:45 Exam: General: Alert, Awake, No acute Distress, obese Eyes/N/T: EOMI, PERRL, dry MM Head/Neck: neck supple, normocephalic atraumatic CV: RRR, 1/6SM, normal s1/s2 Pulm: Clear b/l, no wheezing/rhonchi/rales, tender left side ribs Abd: soft, nontender, +BS x4 Ext: no clubbing/cyanosis/edema Neuro: Alert, no focal deficits, moves all extremities, CN 2-12 grossly intact, sensations intact b/l upper/lower Skin: warm/dry Discharge Plan Patient/Caregiver Discharge Instructions Activity: as per physical therapy Diet: Consistent Carbohydrate Instructions: Pelvic Fracture (DC), Rib Fracture (DC), Weakness (DC), Hip Fracture (ED) Activity Restrictions/Additional Instructions: Non weightbearing left lower extremity for 4 weeks until followed by [facility]. Prescriptions: New sennosides [Senna Lax] 8.6 mg Tablet 8.6 mg PO BID PRN (Reason: constipation) 30 Days Qty: 60 0RF acetaminophen 325 mg Tablet 650 mg PO Q6HP PRN (Reason: Per Pain Protocol/Fever > 101) Qty: 30 0RF potassium chloride 8 mEq capsule, extended release 8 meq PO QDAY Qty: 30 0RF Rx Instructions: Can be substituted with any generic KCl. Thank Continued metformin 500 mg Tablet 500 mg PO BID atorvastatin 20 mg Tablet 20 mg PO QDAY diltiazem HCl 240 mg Capsule,Extended Release 24 Hr 240 mg PO QAM ferrous sulfate 325 mg (65 mg iron) Tablet 325 mg PO QAM aspirin [Aspirin Childrens] 81 mg Tablet,Chewable 81 mg PO QDAY furosemide 20 mg Tablet 20 mg PO QAM lisinopril 40 mg Tablet 40 mg PO QDAY Other Ambulatory Orders: OT Discharge Order (Routine) Location: None Selected Ordered By: Erich Calix Physical Therapy at Discharge - General (Routine) Location: None Selected Ordered By: Erich Calix Follow Up Plan Follow up with: Janelle Anderson MD [Primary Care Provider] - (Please call and schedule a hospital follow up appointment.) Zion Manriquez MD [Physician] - (Please call [facility] and schedule an appointment to be seen in 10-14 days.) Patient Disposition: Xfer SNF Care Plan Goals: 4 weeks nonweightbearing. Plan is for expected discharge to rehab facility with follow-up at [facility] in 10 to 14 days. Follow-up primary care physician within 1 week Plan of Treatment: We will plan for a period of 4 weeks nonweightbearing left lower extremity No surgical intervention is warranted at this time. Plan is for discharge to rehab facility follow-up at [facility] in 10 to 14 days. Prognosis: Good Rehab Potential: Good I certify that the patient requires SNF services: Yes Overall status at discharge: patient is progressing back to baseline Discharge Orders: Discharge Order (Routine); Ordered 02/16/22 Ordered By: Erich Calix
== END 2022-02-16 14:35 | DRG 183 ==
LOC: ED 15:18 → MEDSUR 15:18
PROVIDERS: ADMIT Internal Medicine; ATTEND Internal Medicine